=== PATIENT | male | born 1940 | race Hispanic/Latino ===

== ENCOUNTER 2017-09-21 06:48 | Day surgery (SDC) | payer MEDICARE, BC ==
[2017-09-07 10:05] VITALS: BMI 30.9
[2017-09-21] MEDS ORDERED: Propofol 10 mg/ml Inj (20 ML) ONE (08:53)
[2017-09-21] MEDS ORDERED: Sodium Chloride 0.9% 1,000 ML IV SCH (09:45)
[2017-09-21 10:21] VITALS: BP 148/74; RESP 16; TEMP 97.9; O2SAT 94
[2017-09-21 10:44] VITALS: PULSE 65
== END 2017-09-21 11:07 | disposition home or self-care (01) ==
LOC: ENDO 06:48
PROVIDERS: ATTEND Specialist
DX: Z12.11 Encounter for screening for malignant neoplasm of colon (principal); K57.30 Diverticulosis of large intestine without perforation or abscess without bleeding; K63.89 Other specified diseases of intestine; Z86.010 Personal history of colon polyps; Z85.51 Personal history of malignant neoplasm of bladder; Z98.49 Cataract extraction status, unspecified eye
CPT/HCPCS: 45378; J2704; J7030